=== PATIENT | female | born 1975 | race Caucasian/White ===

== ENCOUNTER 2017-01-09 10:19 | Outpatient (CLI) ==
[2015-06-28 08:26] VITALS: BMI 37.2
[2017-01-09 11:15] LABS: ERYTHROCYTE SEDIMENTATION RATE 36 mm/hr (0-20); ESR INTERNAL QC INTERNAL QC VALID
== END 2017-01-09 10:20 | disposition home or self-care (01) ==
LOC: LAB 10:19
PROVIDERS: ATTEND Orthopaedic Surgery
DX: M25.552 Pain in left hip (principal)
CPT/HCPCS: 36415; 85651; 86140

== ENCOUNTER 2017-06-20 12:53 | Outpatient (CLI) ==
[2015-06-28 08:26] VITALS: BMI 37.2
== END 2017-06-20 12:54 | disposition home or self-care (01) ==
LOC: LAB 12:53
PROVIDERS: ATTEND Nurse Practitioner Family
DX: R50.9 Fever, unspecified (principal)
CPT/HCPCS: 87651; 87804